=== PATIENT | female | born 2005 | race Caucasian/White ===

== ENCOUNTER 2024-06-24 07:32 | Emergency (ER) | payer BC, OTHER ==
[~2024-06-24] VITALS: Ht 167.6 cm; Wt 70.7 kg
[2024-06-24 07:34] VITALS: TEMP 36.7; O2SAT 100
[2024-06-24] MEDS ORDERED: ALBU90AE INH (08:13)
[2024-06-24] MEDS ORDERED: CETI10CA2 MT (08:13)
[2024-06-24] MEDS ORDERED: GUAI-453 MT (08:13)
[2024-06-24 08:28] VITALS: BP 117/71; PULSE 95; RESP 18
[2024-06-24] MEDS: IBUPROFEN 400MG TABLET PO ONE (08:28)
[2024-06-24 08:29] VITALS: TEMP 98
[2024-06-24] MEDS: ACETAMINOPHEN 325MG TABLET PO ONE (08:29)
== END 2024-06-24 08:52 | disposition home or self-care (01) ==
LOC: ER 07:32
DX: J20.9 Acute bronchitis, unspecified (principal); Z79.899 Other long term (current) drug therapy
CPT/HCPCS: 71045; 81025; 99283